=== PATIENT | male | born 2000 | race Two or more races ===

== ENCOUNTER 2020-01-07 15:02 | Emergency (ER) | payer OTHER ==
[~2020-01-07] VITALS: Ht 182.9 cm; Wt 100.0 kg
--- NOTE | 2020-01-07 15:53 | NUR ---
PT TO ROOM FROM LOBBY IN
[2020-01-07] MEDS ORDERED: HYDROcodone/APAP 5/325 TABLET PO PRN (16:30)
--- NOTE | 2020-01-07 17:31 | NUR ---
PT TO CT AT THIS TIME
[2020-01-07] MEDS ORDERED: HYDROcodone/APAP 5/325 TABLET ONE (18:06)
[2020-01-07 18:08] VITALS: BP 128/67
--- NOTE | 2020-01-07 18:09 | NUR ---
PT MEDICATED PER JUL, PT UP FOR RECHECK. PER MD SURGERY LIKELY OUTPATIENT
--- NOTE | 2020-01-07 18:44 | NUR ---
TECH AT BEDSIDE FOR SPLINT
== END 2020-01-07 19:13 | disposition home or self-care (01) ==
LOC: ED 17:11
DX: S82.64XA Nondisplaced fracture of lateral malleolus of right fibula, initial encounter for closed fracture (principal); X50.1XXA Overexertion from prolonged static or awkward postures, initial encounter; Y93.67 Activity, basketball; Y92.328 Other athletic field as the place of occurrence of the external cause; Y99.8 Other external cause status
CPT/HCPCS: 29515; 99284